=== PATIENT | male | born 1955 | race Caucasian/White ===

== ENCOUNTER 2021-12-03 06:08 | Inpatient (IN) ==
[~2021-12-03 06:08] MED LIST: ceFAZolin 1,000 MG, Sodium Chloride IRRigation 1,000 ML IR ONE
[2021-12-03] MEDS ORDERED: Heparin 1,000 UNITS/500 mL 1,500 ML ONE (06:23)
[2021-12-03] MEDS ORDERED: CeFAZolin Syr 2,000MG/20 ML 2,000 MG/20 ML SYRINGE IVPB ONE (06:28)
[2021-12-03] MEDS ORDERED: Ringers Solution, Lactated 1,000 ML IVC SCH (06:30)
[2021-12-03] MEDS ORDERED: NiCARdipine 2.5 MG/10 ML Syringe IVPB ONE (06:52)
[2021-12-03] MEDS ORDERED: Acetaminophen IV 1,000 MG/100 ML BAG IVPB ONE (07:00)
[2021-12-03] MEDS ORDERED: Ondansetron 4 MG/2 ML VIAL IVP PRN ×2 (07:00→15:27)
[2021-12-03] MEDS ORDERED: *HR* OxyCODONE Immed Rel 5 MG TABLET PO PRN (07:00)
[2021-12-03] MEDS ORDERED: Albuterol 2.5 MG/3 ML NEBULIZER IH PRN (07:00)
[2021-12-03] MEDS ORDERED: Famotidine 20 MG/2 ML VIAL IVP ONE (07:00)
[2021-12-03] MEDS ORDERED: *HR* Propofol 200 MG/20 ML VIAL IVP ONE (07:18)
[2021-12-03] MEDS ORDERED: Ondansetron 4 MG/2 ML VIAL ONE ×2 (07:18→13:07)
[2021-12-03] MEDS ORDERED: *HR* FentaNYL (PF) 100 MCG/2 ML VIAL ONE ×2 (07:18→09:47)
[2021-12-03] MEDS ORDERED: Lidocaine -MPF 4% 5 ML AMPUL ONE (07:18)
[2021-12-03] MEDS ORDERED: Lidocaine -MPF 2% 5 ML VIAL ONE (07:18)
[2021-12-03] MEDS ORDERED: *HR* Midazolam HCl 5 MG/5 ML VIAL IVP ONE (07:18)
[2021-12-03] MEDS ORDERED: *HR* Rocuronium Bromide 50 MG/5 ML VIAL ONE ×3 (07:18→12:21)
[2021-12-03] MEDS ORDERED: *HR* Phenylephrine 10 MG/ML VIAL ONE (07:24)
[2021-12-03] MEDS ORDERED: Heparin 1,000 UNITS/500 mL 0 ML ONE (07:24)
[2021-12-03] MEDS ORDERED: Calcium Gluconate 1,000 MG/10 ML VIAL ONE (07:45)
[2021-12-03 08:47] LABS: ABG Base Excess 1 mEq/L (-2 to 3); ABG Chloride 103 mEq/L (98-107); ABG Glucose 103 mg/dL (60-95); ABG HCO3 26 mEq/L (21-27); ABG Ionized Calcium 1.22 mmol/L (1.15-1.35); ABG Oxygen Saturation 99 % (95-98); ABG PCO2 42 mmHg (35-45); ABG PO2 137 mmHg (85-104); ABG TCO2 27 mEq/L (20-26)
[2021-12-03] MEDS ORDERED: *HR* Heparin 5,000 UNIT/ML VIAL ONE ×2 (09:54→10:52)
[2021-12-03] MEDS ORDERED: Albumin Human 5% 12.5 GM/250 ML IV.SOLN ONE (10:46)
[2021-12-03] MEDS ORDERED: ceFAZolin 1,000 MG, Sodium Chloride IRRigation 1,000 ML IR ONE (11:30)
[2021-12-03 12:28] LABS: ABG Base Excess 0 mEq/L (-2 to 3); ABG Chloride 104 mEq/L (98-107); ABG Glucose 169 mg/dL (60-95); ABG HCO3 25 mEq/L (21-27); ABG Ionized Calcium 1.11 mmol/L (1.15-1.35); ABG Oxygen Saturation 99 % (95-98); ABG PCO2 42 mmHg (35-45); ABG PH 7.38 pH Units (7.32-7.45); ABG PO2 149 mmHg (85-104); ABG TCO2 26 mEq/L (20-26)
[2021-12-03] MEDS ORDERED: *HR* HYDROMORPHONE 2 MG/ML VIAL ONE (12:53)
[2021-12-03] MEDS ORDERED: *HR* Metoprolol 5 MG/5 ML VIAL IVP ONE (12:55)
[2021-12-03] MEDS: *HR* Metoprolol 5 MG/5 ML VIAL IVP PRN ×2 (14:15→14:25)
[2021-12-03] MEDS: *HR* HYDROmorphone PF 0.5 MG/0.5 ML SYRINGE IVP PRN ×2 (14:35→14:55)
[2021-12-03] MEDS ORDERED: Ketorolac 30 MG/ML VIAL IVP PRN (15:27)
[2021-12-03] MEDS ORDERED: Naloxone 0.4 MG/ML INJ IVP PRN (15:27)
[2021-12-03] MEDS: 0.9 % Sodium Chloride 1,000 ML IVC SCH (16:30)
[2021-12-03] MEDS: *HR* Labetalol 20 MG/4 ML SYRINGE IVP PRN (16:30)
[2021-12-03] MEDS: *HR* Metoprolol 5 MG/5 ML VIAL IVP SCH (18:02)
[2021-12-03] MEDS: CeFAZolin 2 GM/120 ML BAG IVPB SCH (18:02)
[2021-12-03] MEDS: Famotidine 20 MG/2 ML VIAL IVP SCH (18:03)
[2021-12-04] MEDS: *HR* Metoprolol 5 MG/5 ML VIAL IVP SCH ×4 (02:31→16:47)
[2021-12-04] MEDS: CeFAZolin 2 GM/120 ML BAG IVPB SCH ×2 (03:32→08:22)
[2021-12-04 03:56] LABS: Basophils % 0.2 %; Hematocrit 37.9 % (37.5-50.1); Hemoglobin 13.2 g/dL (12.9-16.9); Immature Granulocytes % 0.5 % (0-4); Lymphocytes # 0.9 K/mcL (0.6-4.6); Lymphocytes % 6.8 %; Mean Corpuscular HGB Conc 34.8 g/dL (31.6-35.5); Mean Corpuscular Hemoglobin 33.7 pg (28.0-33.3); Mean Corpuscular Volume 96.7 fL (83.0-100.0); Mean Platelet Volume 10.9 fL (9.4-12.4); Monocytes # 1.2 K/mcL (0.0-1.3); Monocytes % 9.8 %; Neutrophils # 10.4 K/mcL (1.6-8.9); Platelet Count 100 K/mcL (140-400); Red Blood Count 3.92 M/mcL (4.19-5.50); Red Cell Distribution Width 14.3 % (11.5-14.5); Segmented Neutrophils % 82.7 %; White Blood Count 12.6 K/mcL (4.3-11.1)
[2021-12-04 04:17] LABS: Calcium 8.1 mg/dL (8.6-10.3); Potassium 4.8 mEq/L (3.5-5.1)
[2021-12-04] MEDS: 0.9 % Sodium Chloride 1,000 ML IVC SCH ×2 (05:50→16:47)
[2021-12-04] MEDS: Famotidine 20 MG/2 ML VIAL IVP SCH ×2 (05:50→16:46)
[2021-12-04] MEDS: *HR* Labetalol 20 MG/4 ML SYRINGE IVP PRN (18:57)
[2021-12-05] MEDS: *HR* Metoprolol 5 MG/5 ML VIAL IVP SCH ×3 (00:11→11:53)
[2021-12-05 03:06] LABS: White Blood Count 10.9 K/mcL (4.3-11.1)
[2021-12-05 03:08] LABS: Hematocrit 37.5 % (37.5-50.1); Hemoglobin 12.4 g/dL (12.9-16.9); Immature Platelets 7.6 % (1.1-6.1); Mean Corpuscular HGB Conc 33.1 g/dL (31.6-35.5); Mean Corpuscular Hemoglobin 32.3 pg (28.0-33.3); Mean Corpuscular Volume 97.7 fL (83.0-100.0); Red Blood Count 3.84 M/mcL (4.19-5.50); Red Cell Distribution Width 14.6 % (11.5-14.5)
[2021-12-05 03:10] LABS: Calcium 8.1 mg/dL (8.6-10.3)
[2021-12-05] MEDS: *HR* Labetalol 20 MG/4 ML SYRINGE IVP PRN ×2 (04:36→19:39)
[2021-12-05] MEDS: Famotidine 20 MG/2 ML VIAL IVP SCH ×2 (05:24→18:56)
[2021-12-05] MEDS: 0.9 % Sodium Chloride 1,000 ML IVC SCH (07:50)
[2021-12-05] MEDS: 0.9 % Sodium Chloride 500 ML IVC SCH (14:30)
[2021-12-05] MEDS: Metoprolol XL (24 HR) Succ 50 MG TAB.ER.24H PO SCH (15:31)
[2021-12-05] MEDS: amLODIPine 5 MG TABLET PO SCH (15:32)
[2021-12-05] MEDS ORDERED: Furosemide 40 MG/4 ML VIAL IVP ONE (16:11)
[2021-12-05] MEDS ORDERED: Albuterol 2.5 MG/3 ML NEBULIZER IH ONE (16:17)
[2021-12-05 17:45] LABS: Calcium 8.5 mg/dL (8.6-10.3); Magnesium 1.8 mg/dL (1.6-2.6)
[2021-12-05 17:52] LABS: Troponin I 0.3 ng/mL (< 0.04)
[2021-12-05] MEDS ORDERED: Magnesium Sulfate 1 GM/102 ML PIGGYBACK IVPB ONE (20:02)
[2021-12-05] MEDS ORDERED: Aspirin 325 MG TABLET PO ONE (21:39)
[2021-12-05] MEDS ORDERED: Perflutren Lipid Microsphere 1.3 ML in 0.9 % Sodium Chloride 8.7 ML IVP PRN (22:39)
[2021-12-06 00:50] LABS: Mean Corpuscular Volume 96.9 fL (83.0-100.0); Red Cell Distribution Width 14.2 % (11.5-14.5)
[2021-12-06 00:52] LABS: Basophils % 0.2 %; Eosinophils % 0.3 %; Hematocrit 33.9 % (37.5-50.1); Hemoglobin 11.7 g/dL (12.9-16.9); Immature Granulocytes % 0.8 % (0-4); Immature Platelets 8.4 % (1.1-6.1); Lymphocytes # 0.9 K/mcL (0.6-4.6); Lymphocytes % 10.2 %; Mean Corpuscular HGB Conc 34.5 g/dL (31.6-35.5); Mean Corpuscular Hemoglobin 33.4 pg (28.0-33.3); Mean Platelet Volume 11.2 fL (9.4-12.4); Monocytes % 10.5 %; Neutrophils # 7.2 K/mcL (1.6-8.9); White Blood Count 9.2 K/mcL (4.3-11.1)
[2021-12-06 00:57] LABS: Platelet Count 79 K/mcL (140-400)
[2021-12-06 03:10] LABS: Calcium 8.3 mg/dL (8.6-10.3); Potassium 3.2 mEq/L (3.5-5.1); Troponin I 0.39 ng/mL (< 0.04)
[2021-12-06] MEDS: 0.9 % Sodium Chloride 500 ML IVC SCH (06:33)
[2021-12-06] MEDS: *HR* Labetalol 20 MG/4 ML SYRINGE IVP PRN ×2 (06:33→13:23)
[2021-12-06] MEDS: Famotidine 20 MG/2 ML VIAL IVP SCH ×2 (06:33→18:01)
[2021-12-06] MEDS ORDERED: Potassium Chloride Elixir 20 MEQ/15 ML UDC PO ONE (08:00)
[2021-12-06] MEDS: amLODIPine 5 MG TABLET PO SCH (08:13)
[2021-12-06] MEDS: Metoprolol XL (24 HR) Succ 50 MG TAB.ER.24H PO SCH ×2 (08:13→20:01)
[2021-12-06] MEDS ORDERED: amLODIPine 5 MG TABLET PO ONE (13:45)
[2021-12-06] MEDS: 0.9 % Sodium Chloride 1,000 ML IVC SCH (15:16)
[2021-12-06 18:30] LABS: Bilirubin,Urine Negative (Negative); Blood,Urine Moderate (Negative); Clarity,Urine Clear (Clear); Color,Urine Light-Yellow (Yellow); Glucose,Urine (UA) 100 mg/dL (Normal); Ketones,Urine Negative (Negative); Leukocyte Esterase,Urine Negative (Negative); Mucus,Urine Few per lpf (None-Few); Nitrite,Urine Negative (Negative); PH,Urine 6.5 pH Units (5.0-8.0); Protein,Urine >=300 mg/dL (Neg-Trace); Squamous Epithelial Cell,Urine Few per hpf (None-Few); Urobilinogen,Urine Normal (Normal); WBC,Urine 0-3 per hpf (0-3)
[2021-12-06 18:53] LABS: Creatinine,Urine 94 mg/dL; Microalbumin,Urine > 1350 mg/L; Protein/Creatinine Ratio,Urine 8.78 mg/mg (0.00-0.20)
[2021-12-06 22:57] LABS: Potassium 3.8 mEq/L (3.5-5.1)
[2021-12-07] MEDS: 0.9 % Sodium Chloride 1,000 ML IVC SCH ×2 (03:16→17:06)
[2021-12-07 05:38] LABS: Basophils % 0.2 %; Eosinophils # 0.1 K/mcL (0.0-0.6); Hematocrit 32.5 % (37.5-50.1); Immature Granulocytes % 0.6 % (0-4); Immature Platelets 10.4 % (1.1-6.1); Lymphocytes # 0.9 K/mcL (0.6-4.6); Lymphocytes % 10.8 %; Mean Corpuscular HGB Conc 33.8 g/dL (31.6-35.5); Mean Corpuscular Hemoglobin 32.9 pg (28.0-33.3); Mean Corpuscular Volume 97.3 fL (83.0-100.0); Mean Platelet Volume 11.2 fL (9.4-12.4); Monocytes # 0.9 K/mcL (0.0-1.3); Monocytes % 11.6 %; Red Blood Count 3.34 M/mcL (4.19-5.50); Red Cell Distribution Width 14.2 % (11.5-14.5); Segmented Neutrophils % 75.8 %; White Blood Count 8.1 K/mcL (4.3-11.1)
[2021-12-07 05:42] LABS: Neutrophils # 6.1 K/mcL (1.6-8.9); Platelet Count 82 K/mcL (140-400)
[2021-12-07] MEDS: Famotidine 20 MG/2 ML VIAL IVP SCH ×2 (05:46→17:07)
[2021-12-07 06:02] LABS: Phosphorous 2.6 mg/dL (2.7-4.5); Potassium 4.1 mEq/L (3.5-5.1); Uric Acid 7.4 mg/dL (2.3-7.6)
[2021-12-07 06:08] LABS: Thyroid Stimulating Hormone 1.894 mcIU/mL (0.340-5.600)
[2021-12-07 06:18] LABS: Vitamin B12 358 pg/mL (250-1100)
[2021-12-07] MEDS: amLODIPine 5 MG TABLET PO SCH (08:29)
[2021-12-07] MEDS: Metoprolol XL (24 HR) Succ 50 MG TAB.ER.24H PO SCH ×2 (08:29→20:19)
[2021-12-07 09:37] LABS: Vitamin D 25 Hydroxy 21 ng/mL (30-80)
[2021-12-07 14:16] LABS: Hepatitis B Surface Antigen Nonreactive (Nonreactive)
[2021-12-07 14:45] LABS: Hepatitis C Virus Antibody Nonreactive (Nonreactive)
[2021-12-07 14:46] LABS: Hepatitis B Core IgM Nonreactive (Nonreactive)
[2021-12-07 14:47] LABS: Hepatitis A Antibody IgM Nonreactive (Nonreactive)
[2021-12-08 02:53] LABS: Hemoglobin 10.6 g/dL (12.9-16.9); Immature Granulocytes % 0.6 % (0-4); Mean Platelet Volume 11.5 fL (9.4-12.4)
[2021-12-08 02:55] LABS: Basophils % 0.2 %; Eosinophils # 0.1 K/mcL (0.0-0.6); Eosinophils % 1.2 %; Hematocrit 31.4 % (37.5-50.1); Immature Platelets 8.8 % (1.1-6.1); Lymphocytes % 10.3 %; Mean Corpuscular HGB Conc 33.8 g/dL (31.6-35.5); Mean Corpuscular Hemoglobin 32.7 pg (28.0-33.3); Mean Corpuscular Volume 96.9 fL (83.0-100.0); Monocytes # 1.2 K/mcL (0.0-1.3); Monocytes % 12.3 %; Nucleated Red Blood Cells 0.2 /100 WBC (0); Platelet Count 100 K/mcL (140-400); Red Blood Count 3.24 M/mcL (4.19-5.50); Segmented Neutrophils % 75.4 %
[2021-12-08 02:58] LABS: Neutrophils # 7.5 K/mcL (1.6-8.9)
[2021-12-08] MEDS: Famotidine 20 MG/2 ML VIAL IVP SCH ×2 (05:49→17:22)
[2021-12-08] MEDS: 0.9 % Sodium Chloride 1,000 ML IVC SCH ×3 (05:50→20:36)
[2021-12-08] MEDS: Metoprolol XL (24 HR) Succ 50 MG TAB.ER.24H PO SCH ×2 (09:29→20:37)
[2021-12-08] MEDS: amLODIPine 5 MG TABLET PO SCH (09:30)
[2021-12-08 09:41] LABS: Calcium 8.1 mg/dL (8.6-10.3); Potassium 3.7 mEq/L (3.5-5.1)
[2021-12-08] MEDS ORDERED: Ergocalciferol (VIT D2) 50,000 UNIT (1.25MG) CAP PO SCH (12:30)
[2021-12-09] MEDS: 0.9 % Sodium Chloride 1,000 ML IVC SCH (05:49)
[2021-12-09] MEDS: Famotidine 20 MG/2 ML VIAL IVP SCH ×2 (05:49→17:27)
[2021-12-09] MEDS ORDERED: Famotidine 20 MG/2 ML VIAL IVP SCH (06:00)
[2021-12-09] MEDS: amLODIPine 5 MG TABLET PO SCH (08:55)
[2021-12-09] MEDS: Metoprolol XL (24 HR) Succ 50 MG TAB.ER.24H PO SCH (08:55)
[2021-12-09 09:16] LABS: Calcium 8.4 mg/dL (8.6-10.3); Potassium 3.7 mEq/L (3.5-5.1)
[2021-12-09 11:26] VITALS: BP 158/78
[2021-12-09 17:41] VITALS: PULSE 91; TEMP 98.5; O2SAT 91
== END 2021-12-09 18:45 | disposition home or self-care (01) | DRG 268 ==
LOC: SAMDAY 06:08 → SUATTDRO 07:30 → 2NNU 07:30
PROVIDERS: ADMIT Surgery Vascular Surgery; ATTEND Internal Medicine

== ENCOUNTER 2022-05-12 17:43 | Inpatient (IN) ==
[2022-05-12] MEDS ORDERED: cefTRIAXone 1,000 MG in 0.9 % Sodium Chloride Mini Bag 100 ML IVPB ONE (22:25)
[2022-05-12] MEDS ORDERED: hydrALAZINE 25 MG TABLET PO PRN (22:28)
[2022-05-12] MEDS ORDERED: Naloxone 0.4 MG/ML INJ IVP PRN (22:45)
[2022-05-12] MEDS ORDERED: Ondansetron 4 MG/2 ML VIAL IVP PRN (22:45)
[2022-05-12] MEDS ORDERED: Acetaminophen 325 MG TABLET PO PRN (22:45)
[2022-05-12] MEDS ORDERED: Ergocalciferol (VIT D2) 50,000 UNIT (1.25MG) CAP PO SCH (23:00)
[2022-05-12] MEDS: Apixaban 5 MG TABLET PO SCH (23:05)
[2022-05-13] MEDS: Levalbuterol Neb 1.25 MG/3 ML IH SCH ×5 (00:04→22:11)
[2022-05-13 01:23] LABS: Hematocrit 33.1 % (37.5-50.1); Hemoglobin 11.4 g/dL (12.9-16.9); Mean Corpuscular HGB Conc 34.4 g/dL (31.6-35.5); Mean Corpuscular Hemoglobin 31.9 pg (28.0-33.3); Mean Corpuscular Volume 92.7 fL (83.0-100.0); Mean Platelet Volume 10.9 fL (9.4-12.4); Platelet Count 143 K/mcL (140-400); Red Blood Count 3.57 M/mcL (4.19-5.50); Red Cell Distribution Width 14.2 % (11.5-14.5); White Blood Count 8.8 K/mcL (4.3-11.1)
[2022-05-13 01:31] LABS: INR 1.6; Prothrombin Time 18.3 Seconds (9.4-12.1)
[2022-05-13 01:34] LABS: Activated Partial Thrombo Time 37.1 Seconds (26.0-36.0)
[2022-05-13 01:45] LABS: % Iron Saturation 40 % (20-55); BUN/Creatinine Ratio 15 (6-26); Blood Urea Nitrogen 43 mg/dL (8-23); Calcium 8.1 mg/dL (8.6-10.3); Carbon Dioxide 23 mEq/L (23-29); Chloride 103 mEq/L (98-107); Chol/HDL Ratio 3.1 (0-4.9); Cholesterol 142 mg/dL (< 200); Glucose 252 mg/dL (70-105); HDL Cholesterol 46 mg/dL (40-59); Iron 92 mcg/dL (65-175); LDL Cholesterol,Calculated 73 mg/dL (< 100); Magnesium 1.9 mg/dL (1.6-2.6); Osmolality,Calculated 299 (280-300); Potassium 3.2 mEq/L (3.5-5.1); Sodium 135 mEq/L (136-145); Transferrin 165 mg/dL (203-362); Triglycerides 114 mg/dL (< 150); eGFR For African Americans 27 (> 60); eGFR For Non-African Americans 23 (> 60)
[2022-05-13 01:46] LABS: Troponin I < 0.03 ng/mL (< 0.04)
[2022-05-13 01:59] LABS: Thyroid Stimulating Hormone 2.071 mcIU/mL (0.340-5.600)
[2022-05-13 02:04] LABS: Ferritin 212 ng/mL (20-250)
[2022-05-13 02:09] LABS: Folate 17.2 ng/mL (3.0-16.0)
[2022-05-13 02:50] LABS: Estimated Average Glucose 111 mg/dl; Hemoglobin A1C 5.5 %
[2022-05-13] MEDS ORDERED: Calcium Gluconate 1gm/50mL 1 GM/50 ML BAG IVPB ONE (06:33)
[2022-05-13] MEDS ORDERED: Potassium Chloride Elixir 20 MEQ/15 ML UDC PO ONE (06:33)
[2022-05-13] MEDS ORDERED: D5% in Water 1,000 ML IVC PRN (06:34)
[2022-05-13] MEDS ORDERED: *HR* Dextrose 50 % in Water (Syg) 50 ML SYRINGE IVP PRN (06:34)
[2022-05-13] MEDS ORDERED: Dextrose Gel 15 GM/37.5 ML TUBE PO PRN ×2 (06:34)
[2022-05-13] MEDS: Apixaban 5 MG TABLET PO SCH ×2 (09:10→20:39)
[2022-05-13] MEDS: amLODIPine 5 MG TABLET PO SCH (09:10)
[2022-05-13] MEDS: Metoprolol XL (24 HR) Succ 50 MG TAB.ER.24H PO SCH (09:10)
[2022-05-13] MEDS: Insulin LISPRO 300 UNITS/3 ML VIAL SUBQ SCH ×4 (09:30→20:39)
[2022-05-13] MEDS: Azithromycin 250 MG TABLET PO SCH (12:11)
[2022-05-13] MEDS ORDERED: Furosemide 20 MG/2 ML VIAL IVP ONE (12:16)
[2022-05-13] MEDS: Cyanocobalamin (B-12) 1,000 MCG TABLET PO SCH (13:35)
[2022-05-13] MEDS: cefTRIAXone 1,000 MG in 0.9 % Sodium Chloride Mini Bag 100 ML IVPB SCH (20:40)
[2022-05-14] MEDS: Levalbuterol Neb 1.25 MG/3 ML IH SCH ×4 (03:55→22:37)
[2022-05-14 04:57] LABS: Hemoglobin 10.4 g/dL (12.9-16.9); Immature Platelets 7.5 % (1.1-6.1); Mean Corpuscular HGB Conc 33.5 g/dL (31.6-35.5); Mean Corpuscular Volume 95.4 fL (83.0-100.0); Mean Platelet Volume 11.2 fL (9.4-12.4); Red Blood Count 3.25 M/mcL (4.19-5.50); Red Cell Distribution Width 14.1 % (11.5-14.5); White Blood Count 8.4 K/mcL (4.3-11.1)
[2022-05-14 05:09] LABS: Calcium 8.2 mg/dL (8.6-10.3); Potassium 3.3 mEq/L (3.5-5.1)
[2022-05-14] MEDS: amLODIPine 5 MG TABLET PO SCH (08:35)
[2022-05-14] MEDS: Insulin LISPRO 300 UNITS/3 ML VIAL SUBQ SCH ×4 (08:35→23:07)
[2022-05-14] MEDS: Azithromycin 250 MG TABLET PO SCH (08:36)
[2022-05-14] MEDS: Apixaban 5 MG TABLET PO SCH ×2 (08:36→21:16)
[2022-05-14] MEDS: Metoprolol XL (24 HR) Succ 50 MG TAB.ER.24H PO SCH (08:36)
[2022-05-14] MEDS: Cyanocobalamin (B-12) 1,000 MCG TABLET PO SCH (08:36)
[2022-05-14] MEDS ORDERED: Metoprolol XL (24 HR) Succ 50 MG TAB.ER.24H PO SCH (09:00)
[2022-05-14] MEDS: hydrALAZINE 25 MG TABLET PO SCH ×2 (13:53→21:15)
[2022-05-14] MEDS: cefTRIAXone 1,000 MG in 0.9 % Sodium Chloride Mini Bag 100 ML IVPB SCH (21:16)
[2022-05-14] MEDS ORDERED: Calamine/Zinc oxide Lotion 120 ML BOTTLE TP PRN (21:34)
[2022-05-15] MEDS: Levalbuterol Neb 1.25 MG/3 ML IH SCH ×2 (03:44→10:23)
[2022-05-15] MEDS: hydrALAZINE 25 MG TABLET PO SCH (05:05)
[2022-05-15 07:12] VITALS: BP 153/82; PULSE 97; TEMP 97.6
[2022-05-15] MEDS: Insulin LISPRO 300 UNITS/3 ML VIAL SUBQ SCH ×2 (08:07→12:07)
[2022-05-15] MEDS: Azithromycin 250 MG TABLET PO SCH (08:07)
[2022-05-15] MEDS: amLODIPine 5 MG TABLET PO SCH (08:07)
[2022-05-15] MEDS: Apixaban 5 MG TABLET PO SCH (08:08)
[2022-05-15] MEDS: Metoprolol XL (24 HR) Succ 50 MG TAB.ER.24H PO SCH (08:08)
[2022-05-15] MEDS: Cyanocobalamin (B-12) 1,000 MCG TABLET PO SCH (08:08)
[2022-05-15 11:54] VITALS: O2SAT 92
== END 2022-05-15 12:56 | disposition home or self-care (01) | DRG 193 ==
LOC: 2ANU → SUATTDRO 05-13 12:23
PROVIDERS: ADMIT Internal Medicine; ATTEND Internal Medicine